=== PATIENT | female | born 1985 | race Caucasian/White ===

== ENCOUNTER → 2023-05-19 13:01 | Outpatient (REF) | payer OTHER, MEDICARE, SELFPAY | LOC: HWRAD 13:01 | PROVIDERS: ATTENDING PHYSICIAN Obstetrics & Gynecology; FAMILY PHYSICIAN Family Medicine | DX: R10.2 Pelvic and perineal pain (principal); R35.0 Frequency of micturition; R39.15 Urgency of urination | CPT/HCPCS: 76770; 76830; 76856 ==

== ENCOUNTER → 2024-02-08 20:37 | Outpatient (REF) | payer OTHER, MEDICARE, SELFPAY | LOC: MRI 20:37 | PROVIDERS: ATTENDING PHYSICIAN Specialist; FAMILY PHYSICIAN Family Medicine | DX: M54.12 Radiculopathy, cervical region (principal) | CPT/HCPCS: 72141 ==

== ENCOUNTER 2024-05-05 11:10 | Emergency (ER) | payer OTHER, MEDICARE, SELFPAY ==
[2024-05-05 11:21] VITALS: BP 132/83
--- NOTE | 2024-05-05 12:15 | ED.GENMED ---
History of Present Illness
General
Chief Complaint: Numbness
Source: patient
Time Seen by Provider: 05/05/24 12:02
History of Present Illness
History of Present Illness:
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 Patient presents because over the last 4 to 5 days had intermittent episodes where she feels like she can get her speech. She
states it only lasts a second or 2 and goes away. She states she is not sure if it is just related to anxiety. She is tearful given her history because she is worried. She states she has 4 kids and just becomes concerned when things like this
happen. Patient denies any changes in her extremities. She has chronic left lower extremity and left upper extremity spasticity and weakness. Also has slight left facial droop her previous surgery. Patient denies any fevers. No vision changes.
Triage note noted and she denies numbness around her mouth but she just feels like her upper lip does not feel perfectly normal to her. She states she cannot really call numb. No headache.
Past History
Past History
ED Past Medical History: Psychiatric (anxiety) and Other (Previous oligodendroglioma with surgery)
ED Past Surgical History: Brain (R sided tumor resection), Orthopedic and Other (sinus surgery)
Social History
Tobacco: Non-smoker
Alcohol: None
Drug: None
Personal:
Living: with family
Family History
Family History: Negative Diabetes or CAD
Phy Exam
Physical Exam
Physical Exam:
CONSTITUTIONAL Patient alert and oriented to person, place and time. Well-appearing. Vital signs reviewed.
HEAD atraumatic, normocephalic.
EYES eyelids normal to inspection, Extraocular muscles intact, Conjunctiva normal, Sclera normal.
NECK normal range of motion, Trachea midline, no jugular venous distention.
RESPIRATORY CHEST No respiratory distress noted, Chest expansion equal, Bilateral breath sounds clear.
CARDIOVASCULAR regular rate and rhythm, Heart sounds normal.
BACK normal inspection, no obvious deformities
UPPER EXTREMITY no cyanosis, no edema.
LOWER EXTREMITY no cyanosis, no edema.
NEURO Speech normal, Memory normal, LUE and LLE spasticity and weakness noted. Cranial Nerves intact to screening exam.
SKIN skin warm, dry, and normal in color.
Course
Orders/Labs/Results
Orders:
Orders
05/05/24 11:30
Test Result ONCE
05/05/24 12:12
CT Head W/o Iv Contrast Urgent
Comment: h/o oligodendroglioma
Reason For Exam: intermittent speech disturbance
05/05/24 12:15
CBC/With Diff [Complete Blood Count/With Diff] Urgent
Comprehensive Metabolic Panel Urgent
HCG, Serum Qualitative Screen Urgent
Abnormal Lab Results
05/05/24
12:15
MCH 26.6 L pg
(27.0-31.0)
MCHC 32.3 L g/dL
(33.0-37.0)
Absolute Neuts (auto) 6.8 H 10^3/uL
(1.4-6.5)
Neutrophils % 78.0 H %
(42.2-75.2)
Lymphocytes % 15.5 L %
(20.5-51.1)
Glucose 122 H mg/dl
(70-99)
05/05/24 12:15
05/05/24 12:15
Vital Signs
Initial and Last Documented VS:
Initial Vital Signs
Temp Pulse Resp BP Pulse Ox
98.2 F 91 16 132/83 99
05/05/24 11:21 05/05/24 11:21 05/05/24 11:21 05/05/24 11:21 05/05/24 11:21
Last Documented Vital Signs
Temp Pulse Resp BP Pulse Ox
98.2 F 80 20 134/76 99
05/05/24 11:21 05/05/24 12:42 05/05/24 12:42 05/05/24 12:42 05/05/24 12:42
MDM/Problems Addressed
Differential Diagnosis Includes:
Demyelinating disorder, recurrent mass, hemorrhage, stress-induced, electrolyte imbalance
MDM/Problems Addressed:
Speech changes
*Radiology
Radiology exam reviewed: radiology read reviewed
*Pulse Oximetry
Patient hypoxic: no
*Welding Machine Operator Thermit Interpretation
Rate: normal
Interpretation: normal
Rhythm: sinus
*Critical Care Note
Total Time (30-74mins, 75-104mins- exclusive of procedures): Not Applicable
Data Reviewed
Source: patient
Patient Management
Escalation/DeEscalation of care consider admission/obs:
Patient appears quite well. Exam at baseline. The patient reports changes are literally 1 word at a time and maybe once a day at the most. I do not suspect CVA. She will need an outpatient MRI for further evaluation but okay for discharge from
the emergency department. She agrees to follow-up
ED Attending Note
-
Portions of this chart may have been created with voice recognition software.� Occasional wrong word or��sound alike� substitutions may have occurred due to the inherent limitations of voice recognition software.
Discharge Plan
Departure
Patient Disposition: Home (Routine Discharge)
Date of Disposition: 05/05/24
Time of Disposition: 13:19
Patient with high blood pressure during this ER visit?: No
Discharge Problem:
Alteration in speech
Prescriptions:
No Action
lamotrigine [Lamictal] 200 mg Tablet
200 mg PO HS
cetirizine [Zyrtec] 10 mg Tablet
10 mg PO DAILY
vit-iron fum-folic ac [ Tablet] 28 mg iron- 800 mcg Tablet
1 tab PO DAILY
lamotrigine [Lamictal] 100 mg Tablet
100 mg PO DAILY
fluticasone propionate [Flovent HFA] 110 mcg/actuation Hfa Aerosol Inhaler
1 puff INHALATION BID
azelastine 137 mcg (0.1 %) Aerosol,Belcher
1 spray INTRANASAL BID
hydrocortisone acetate 25 mg Suppository
25 mg MN BID Qty: 0 0RF
acetaminophen 325 mg Tablet
650 mg PO Q4HPRN PRN (Reason: mild pain) Qty: 0 0RF
sennosides-docusate sodium 8.6-50 mg Tablet
1 tab PO DAILYPRN PRN (Reason: constipation) Qty: 0 0RF
ibuprofen 600 mg Tablet
600 mg PO Q6HPRN PRN (Reason: moderate pain/cramps) Qty: 45 0RF
escitalopram oxalate [Lexapro] 10 mg tablet
10 mg PO DAILY Qty: 30 0RF
Activity Restrictions/Additional Instructions:
Speech change
Please see your doctor next 3 to 5 days for follow-up and reevaluation and to plan an MRI of your brain. Return immediately for worsening symptoms, motor weakness out of proportion to your baseline, vision changes, weakness of any kind or any other
concerns.
Interventions
Interventions:
*Risk Screen - Suicide Last Done: 05/05/24 11:21
*General Assessment Last Done: 05/05/24 11:40
*Neglect/Abuse Screening Last Done: 05/05/24 11:21
ED- Fall Risk Assessment Last Done: 05/05/24 11:40
ED- Neurological Assessment Last Done: 05/05/24 11:40
Discharge Date and Time
Print Language: DIVEHI
[2024-05-05 12:34] LABS: % Basophils 0.6 % (0-2); % Eosinophils 0.3 % (0-6); % Immature Granulocytes 0.3 % (0-0.5); % Lymphocytes 15.5 % (20.5-51.1); % Monocytes 5.3 % (1.7-9.3); Absolute Basophils 0.1 10^3/uL (0-0.2); Absolute Lymphocytes 1.3 10^3/uL (1.2-3.4); Absolute Monocytes 0.5 10^3/uL (0.1-0.6); Absolute Neutrophils 6.8 10^3/uL (1.4-6.5); Hematocrit 41.5 % (37.0-47.0); Hemoglobin 13.4 g/dL (12.0-16.0); Mean Corp Hgb Conc. 32.3 g/dL (33.0-37.0); Mean Corpuscular Hgb 26.6 pg (27.0-31.0); Mean Corpuscular Volume 82.3 fL (81.0-99.0); Mean Platelet Volume 9.3 fL (7.4-10.4); Nucleated Red Blood Cells % 0 %; Platelet Count 272 10^3/uL (130-400); Red Blood Cell Count 5.04 10^6/uL (4.20-5.40); Red Cell Dist. Width 13.1 % (11.5-14.5); White Blood Cell Count 8.7 10^3/uL (4.8-10.8)
[2024-05-05 12:42] VITALS: BP 134/76
[2024-05-05 12:47] LABS: HCG, Serum Qualitative Screen Negative
[2024-05-05 12:50] LABS: ALT (SGPT) 17 U/L (0-35); AST (SGOT) 21 U/L (14-36); Albumin 4.2 g/dl (3.5-5.0); Alkaline Phosphatase 82 U/L (38-126); Blood Urea Nitrogen 7 mg/dl (7-17); Calcium 9.5 mg/dl (8.4-10.2); Carbon Dioxide 28 mmol/L (22-30); Chloride 103 mmol/L (98-107); Glucose 122 mg/dl (70-99); Potassium 4.5 mmol/L (3.5-5.1); Sodium 137 mmol/L (135-145); Total Bilirubin 0.5 mg/dl (0.2-1.3); Total Protein 7.1 g/dl (6.3-8.2); eGFR > 60.00
== END 2024-05-05 14:09 | disposition home or self-care (01) ==
LOC: EMR 11:10
PROVIDERS: EMERGENCY PHYSICIAN Emergency Medicine; FAMILY PHYSICIAN Family Medicine
DX: R47.89 Other speech disturbances (principal); F41.9 Anxiety disorder, unspecified
CPT/HCPCS: 99284; 70450; 80053; 84703; 85025; 99285

== ENCOUNTER 2025-03-05 06:24 | Day surgery (SDC) | payer OTHER, MEDICARE, SELFPAY ==
[2025-03-02 10:54] LABS: Hematocrit 41.3 % (37.0-47.0); Hemoglobin 13.6 g/dL (12.0-16.0); Mean Corp Hgb Conc. 32.9 g/dL (33.0-37.0); Mean Corpuscular Volume 85.3 fL (81.0-99.0); Platelet Count 269 10^3/uL (130-400); Red Cell Dist. Width 12.8 % (11.5-14.5)
[2025-03-02 13:41] VITALS: BMI 28.8
[2025-03-02 14:15] LABS: Blood Urea Nitrogen 11 mg/dl (7-17); Calcium 9.2 mg/dl (8.4-10.2); Carbon Dioxide 31 mmol/L (22-30); Chloride 102 mmol/L (98-107); Estimated Creatinine Clearance 102 ml/min; Glucose 89 mg/dl (70-99); Potassium 5.1 mmol/L (3.5-5.1); Sodium 136 mmol/L (135-145); eGFR > 60.00
[2025-03-05] VITALS (15 sets, daily range): BP systolic 85–115; BP diastolic 47–71; BMI 28.8
[2025-03-05] MEDS: NORMOSOL-R/PLASMALYTE-A 1000 IV (12:48)
[2025-03-05] MEDS: ZOFRAN 4 MG IV (18:25)
[2025-03-05] MEDS: SUBLIMAZE 25 MCG IV (18:31)
[2025-03-05] MEDS: ROXICODONE 5 MG PO (21:34)
[2025-03-05] MEDS: TYLENOL 650 MG PO (21:36)
== END 2025-03-05 22:16 | disposition home or self-care (01) ==
LOC: SDS 06:24
PROVIDERS: ATTENDING PHYSICIAN Obstetrics & Gynecology; FAMILY PHYSICIAN Family Medicine
DX: N39.3 Stress incontinence (female) (male) (principal); N81.11 Cystocele, midline; N36.41 Hypermobility of urethra; N81.6 Rectocele; N32.81 Overactive bladder
CPT/HCPCS: 57288; 57260; C1771; 36415; 80048; 85027; 93005

== ENCOUNTER 2025-03-07 11:57 | Emergency (ER) | payer MEDICARE, OTHER, SELFPAY ==
[2025-03-07 12:00] VITALS: BP 110/73
[2025-03-07 12:22] LABS: Hematocrit 36.9 % (37.0-47.0); Hemoglobin 12.3 g/dL (12.0-16.0); Mean Corp Hgb Conc. 33.3 g/dL (33.0-37.0); Mean Corpuscular Volume 82.9 fL (81.0-99.0); Nucleated Red Blood Cells % 0 %; Platelet Count 251 10^3/uL (130-400); Red Cell Dist. Width 13.1 % (11.5-14.5)
[2025-03-07 12:53] LABS: HCG, Serum Qualitative Screen Negative
[2025-03-07 13:03] LABS: ALT (SGPT) 15 U/L (0-35); AST (SGOT) 17 U/L (14-36); Albumin 3.8 g/dl (3.5-5.0); Alkaline Phosphatase 62 U/L (38-126); Blood Urea Nitrogen 8 mg/dl (7-17); Calcium 9.0 mg/dl (8.4-10.2); Carbon Dioxide 28 mmol/L (22-30); Chloride 105 mmol/L (98-107); Glucose 120 mg/dl (70-99); Potassium 3.8 mmol/L (3.5-5.1); Sodium 136 mmol/L (135-145); Total Protein 6.5 g/dl (6.3-8.2); eGFR > 60.00
[2025-03-07 15:10] VITALS: BMI 30.8
[2025-03-07 15:13] VITALS: BP 112/65
--- NOTE | 2025-03-07 15:27 | ED.GENMED ---
History of Present Illness
General
Chief Complaint: Fainting Sensation
Source: patient
Exam Limitations: none
Time Seen by Provider: 03/07/25 15:19
History of Present Illness
History of Present Illness:
See MDM
Past History
Past History
ED Past Medical History: Psychiatric (anxiety) and Other (Previous oligodendroglioma with surgery)
ED Past Surgical History: Brain (R sided tumor resection), Orthopedic and Other (sinus surgery)
Social History
Tobacco: Non-smoker
Alcohol: None
Drug: None
Personal:
Living: with family
Family History
Family History: Negative Diabetes or CAD
Phy Exam
Physical Exam
Physical Exam:
See MDM
Course
Orders/Labs/Results
Orders:
Orders
03/07/25 12:04
Test Result ONCE
03/07/25 12:08
Complete Blood Count/With Diff Urgent
Comprehensive Metabolic Panel Urgent
HCG, Serum Qualitative Screen Urgent
03/07/25 17:05
Ibuprofen [Motrin] 600 mg PO NOW STA
03/07/25 17:34
Lactulose [Duphalac/Chronulac] 20 grams PO ONCE ONE
Abnormal Lab Results
03/07/25
12:08
Hct 36.9 L %
(37.0-47.0)
Absolute Neuts (auto) 7.9 H 10^3/uL
(1.4-6.5)
Neutrophils % 76.4 H %
(42.2-75.2)
Lymphocytes % 15.8 L %
(20.5-51.1)
Glucose 120 H mg/dl
(70-99)
03/07/25 12:08
03/07/25 12:08
Vital Signs
Initial and Last Documented VS:
Initial Vital Signs
Temp Pulse Resp BP Pulse Ox
98.4 F 79 16 110/73 98
03/07/25 12:00 03/07/25 12:00 03/07/25 12:00 03/07/25 12:00 03/07/25 12:00
Last Documented Vital Signs
Temp Pulse Resp BP Pulse Ox
98.4 F 70 18 104/61 98
03/07/25 12:00 03/07/25 17:30 03/07/25 17:30 03/07/25 17:00 03/07/25 15:31
MDM/Problems Addressed
Differential Diagnosis Includes:
Note:
CHIEF COMPLAINT(S)
Weakness and feeling shaky post-surgery.
HISTORY OF PRESENT ILLNESS
The patient is a 39-year-old female presenting with weakness and shaking likely attributed to post-operative status from recent pelvic surgery. Surgery occurred late Wednesday, including rectocele repair and pelvic floor sling insertion. She reports
post-operative hypotension, necessitating prolonged recovery in the hospital. Upon attempting to get out of bed for the first time yesterday, she experienced presyncope and significant weakness, leading to assistance from her spouse. She feels very
weak and shaky in her legs. She does not recall the need for the catheter placement as she has experienced difficulty urinating potentially due to anesthesia effects. No infection has been reported. The patient mentions taking senna (senna
concentrate) for bowel management without success.
Pt was supposed to go to the office today for her Terry catheter removal but she was sent in for blood work.
PAST MEDICAL AND SURGICAL HISTORY
Rectocele repair and pelvic floor sling surgery, recent.
PHYSICAL EXAM
General: Alert, no acute distress.
Skin: Warm, dry.
Head: Normocephalic, atraumatic
Neck: Appears supple, trachea midline.
Eyes, Ears, Nose, Mouth, and Throat: Moist mucous membranes
Cardiovascular: No signs of cyanosis. Regular rate and rhythm
Respiratory: Respirations are non-labored.
Abdomen: Non-distended. Soft and tender
Musculoskeletal: No deformities
Neurological: No focal neurological deficit observed.
Psychiatric: Cooperative, appropriate mood and affect.
PLAN
Contact the patients surgeon (likely Dr. Arnett) to inquire about the management of the urinary catheter and potential cessation. Discuss potential post-operative blood pressure issues and need for continued observation or any intervention.
Consider providing stronger laxatives for bowel management before discharge.
Case discussed with Dr. Domínguez who is comfortable with discharge but wants to do a void trial before going home. Dr. Domínguez comfortable with removing the Terry
DIFFERENTIAL DIAGNOSIS
The Differential Diagnosis includes, in no particular order and is not limited to:
- Post-surgical fatigue
- Postural hypotension
- Urinary retention due to anesthesia effects
- Dehydration
- Anemia
- Electrolyte imbalance
- Drug side effects
- Urinary tract infection
- Infection at surgical site
- Neurological complications (e.g., nerve injury)
MEDICATION RECONCILIATION
Senna (senna concentrate) reportedly taken at home with no relief.
MEDICAL DECISION MAKING
Number and Complexity of Problems Addressed: Chronic conditions affecting care [recent pelvic surgery, recent hypo-tension during recovery]
-Data:
Category 1
- Consideration of clinical interventions like potential consultation with surgery regarding urinary catheter management and post-operative hypotension issues.
-Risk:
- Assessment for need for urinary catheter removal to avoid infection.
- Plan for providing stronger medications to aid bowel movement before discharge.
Request to contact the surgical team indicates coordination of care to ensure optimal management post-surgery.
DIAGNOSIS
- Post-operative weakness and presyncope: ICD-10 R53.1
- Retention of urine post-surgery: ICD-10 R33.8
CARE-UPDATE
03/07/25 - 17:34
The fully catheter was removed, and the bladder was instilled with 300 milliliters of sterile water. The post-void residual was 25 milliliters. The patient will have outpatient follow-up with a surgeon. To address the ongoing constipation, the
patient will receive a one-time dose of lactulos.
SUMMARY OF ENCOUNTER
The patient presented with a near-syncope episode, which appears to be orthostatic and potentially related to recent surgery and anesthesia. She remained in normal sinus rhythm on the monitor, with no significant clinical abnormalities in her blood
work observed. The patient was set to have her Terry catheter removed today. After removal, there was no evidence of urinary retention, and she reported feeling comfortable going home. A one-time dose of lactulose was administered to address
constipation.
DISPOSITION
Discharge.
ASSESSMENT
Orthostatic hypotension likely related to post-surgical status and anesthesia.
MANAGEMENT OF THE PATIENTS CARE WAS DISCUSSED WITH
Discussed case with her surgeon.
PLAN
The patient is to be monitored for recurrence of symptoms, ensure adequate hydration, and continue bowel management to alleviate constipation.
MEDICATION RECONCILIATION
A one-time dose of lactulose was administered.
MEDICAL DECISION MAKING
-Chronic conditions affecting care: Orthostatic hypotension likely due to recent surgery and anesthesia.
-Data:
Category 3
Discussion of management with the surgeon regarding the removal of the Terry catheter and assessment for discharge readiness.
-Risk:
Prescription medication was prescribed (lactulose) for constipation.
DIAGNOSIS
Orthostatic hypotension: ICD-10 I95.1
*Pulse Oximetry
SaO2: 98
Oxygen Mode of Delivery: Room air
Patient hypoxic: no
*Critical Care Note
Total Time (30-74mins, 75-104mins- exclusive of procedures): Not Applicable
ED Attending Note
-
Portions of this chart may have been created with voice recognition software.� Occasional wrong word or��sound alike� substitutions may have occurred due to the inherent limitations of voice recognition software.
Discharge Plan
Departure
Patient Disposition: Home (Routine Discharge)
Date of Disposition: 03/07/25
Time of Disposition: 17:50
Patient with high blood pressure during this ER visit?: No
Discharge Problem:
Orthostasis
Instructions: Near Fainting (DC)
Prescriptions:
No Action
fexofenadine [Juanita] 180 mg Tablet
180 mg PO DAILY
albuterol sulfate 90 mcg/actuation HFA aerosol inhaler
1 inh INHALATION PRN PRN (Reason: SOB/Wheezing)
Referrals:
Saturnino Hood Jr., DO [Family Provider, Internal Medicine]
Activity Restrictions/Additional Instructions:
Please return for any worsening symptoms.
You may return at any time if you have further concerns.
Please follow up with your doctor at the first available appointment, preferably this week.
Thank you for choosing [facility].
Interventions
Interventions:
*Risk Screen - Suicide Last Done: 03/07/25 12:00
*General Assessment Last Done: 03/07/25 12:00
*Neglect/Abuse Screening Last Done: 03/07/25 12:00
*ED COVID-19 Vaccine History Last Done: 03/07/25 12:00
*ED Influenza Vaccine History Last Done: 03/07/25 12:00
[facility] Risk Assessment Tool Last Done: 03/07/25 15:10
ED- Cardiac Assessment Last Done: 03/07/25 15:10
ED- Neurological Assessment Last Done: 03/07/25 15:10
Discharge Date and Time
Print Language: AMERICAN
[2025-03-07 16:00] VITALS: BP 97/64
[2025-03-07 17:00] VITALS: BP 104/61
[2025-03-07] MEDS: MOTRIN 600 MG PO (17:22)
[2025-03-07] MEDS: DUPHALAC/CHRONULAC 20 GRAMS PO (18:04)
[2025-03-07 18:10] VITALS: BP 138/68
[2025-03-07 18:44] VITALS: BP 138/68
== END 2025-03-07 18:10 | disposition home or self-care (01) ==
LOC: EMR 11:57
PROVIDERS: Emergency Medicine; EMERGENCY PHYSICIAN Student in an Organized Health Care Education/Training Program; FAMILY PHYSICIAN Family Medicine
DX: I95.1 Orthostatic hypotension (principal); K59.00 Constipation, unspecified; Z85.841 Personal history of malignant neoplasm of brain
CPT/HCPCS: 99283; 80053; 84703; 85025